=== PATIENT | female | born 1990 | race Caucasian/White ===

== ENCOUNTER 2021-01-18 04:18 | Emergency (ER) | payer OTHER, SELFPAY ==
--- NOTE | ~2021-01-18 | XR_ITS ---
EXAMINATION: XR chest 2V DATE: 01/18/2021 04:59 INDICATION: Left-sided chest pain TECHNIQUE: PA and lateral views of the chest are obtained. COMPARISON: None available FINDINGS: The lungs are free of acute opacities. There is no pleural effusion or pneumothorax. The ca rdiomediastinal silhouette is normal. The visualized bones and soft tissues are unremarkable. IMPRESSION: 1. No acute cardiopulmonary abnormality. Reviewed, dictated and finalized at location A. PASTE SUPERVISOR
[2021-01-18 04:22] VITALS: BP 123/77; PULSE 70; RESP 12; TEMP 36.7; O2SAT 99
--- NOTE | 2021-01-18 04:23 | ECG_ITS ---
Measurements Intervals [place] Rate: 61 P: 64 MI: 135 QRS: 60 QRSD: 104 T: 41 QT: 420 QTc: 424 Interpretive Statements SINUS RHYTHM POSSIBLE LEFT ATRIAL ENLARGEMENT INCOMPLETE RIGHT BUNDLE BRANCH BLOCK BASELINE ARTIFACT- II, III, AVR, AVF, V1, V3-V6 BORDERLINE ECG Electronically Signed On 01-18-2021 7:17:00 SENIOR DIRECTOR OF STRATEGY by Melquiades Berumen D.O.
[2021-01-18 04:27] VITALS: PULSE 60
[2021-01-18 04:48] LABS: Basophils Absolute Auto 0.1 K/mm3 (0.0-0.1); Basophils Percent Auto 0.9 % (0.2-1.2); Eosinophils Absolute Auto 0.2 K/mm3 (0-0.3); Eosinophils Percent Auto 1.8 % (0-4.4); Hematocrit 41.1 % (37.0-47.0); Hemoglobin 13.4 g/dL (12.0-15.0); Immature Granulocyte Absolute 0.04 K/mm3 (0.00-0.031); Immature Granulocyte Percent A 0.5 % (0-0.5); Lymphocytes Absolute Auto 2.89 K/mm3 (0.9-3.2); Lymphocytes Percent Auto 33.9 % (18.3-44.2); Mean Corpuscular HGB Conc 32.6 g/dl (32-36); Mean Corpuscular Hemoglobin 29.7 pg (26-34); Mean Corpuscular Volume 91.1 fl (80-100); Mean Platelet Volume 8.9 fl (7.4-10.4); Monocytes Absolute Auto 0.6 K/mm3 (0.1-0.6); Monocytes Percent Auto 7.2 % (2.6-8.5); Neutrophils Absolute Auto 4.8 K/mm3 (1.3-6.7); Neutrophils Percent Auto 55.7 % (45.5-73.1); Platelet Count Result 241 k/mm3 (150-375); Red Blood Count 4.51 M/mm3 (4.2-5.4); Red Cell Distribution Width 12.8 % (11.5-14.5); White Blood Count 8.5 K/mm3 (4.5-10.0)
--- NOTE | 2021-01-18 04:54 | ED.GENADULT ---
HPI - General Adult General Chief complaint: Chest Pain Stated complaint: chest pain x 1 hour Time Seen by Provider: 01/18/21 04:37 History of Present Illness HPI narrative: Patient 30-year-old female presents the emergency department with chief complaint of chest pain. Patient reports that this evening she started having some tightness in her chest that radiates to her left arm and into her neck patient states that she had no diaphoresis with this but felt a little short of breath with patient states that she is and delivered back in September the patient states also she is currently breast-feeding. Patient denies fever denies chills denies prior history of cardiac disease denies family history for cardiac disease at a young age. Patient denies any other medical conditions. Patient does report that she had gestational diabetes during her 2 previous pregnancies. Related Data Allergies Allergy/AdvReac Type Severity Reaction Status Date / Time No Known Allergies Allergy Verified 01/18/21 04:29 Review of Systems Review of Systems: A 10 system review of systems was completed on the patient and is negative except for what is stated in the HPI. Nursing and ancillary documentation was reviewed. Exam Narrative: GENERAL: Well-appearing, well-nourished, and in no acute distress. HEAD: Normocephalic, atraumatic. EYES: PERRLA and EOMI. ENT: Nares clear, no rhinorrhea or epistaxis. Mucous membranes moist. NECK: Supple. CHEST: Clear to auscultation. No respiratory distress. HEART: Regular rate and rhythm. No murmur heard. Normal peripheral pulses. ABDOMEN: Soft, nontender, nondistended, normal active bowel sounds. EXTREMITIES: Normal range of motion. No edema. SKIN: Warm, dry, no rash. NEURO: No focal deficits. Alert and oriented x3. PSYCH: Normal mood and affect. Course Course Emergency Course: EKG shows sinus rhythm at rate of [address] elevation or ST depression Vital Signs Vital signs: Vital Signs Temperature 36.7 C 01/18/21 04:22 Pulse Rate 70 01/18/21 04:22 Respiratory Rate 12 01/18/21 04:22 Blood Pressure 123/77 01/18/21 04:22 Pulse Oximetry 99 01/18/21 04:22 Temperature 36.7 C 01/18/21 04:22 Pulse Rate 62 01/18/21 05:32 Respiratory Rate 12 01/18/21 05:32 Blood Pressure 113/71 01/18/21 05:32 Pulse Oximetry 100 01/18/21 05:32 Medical Decision Making Vital Signs Vital Signs: Vital Signs Temperature 36.7 C 01/18/21 04:22 Pulse Rate 70 01/18/21 04:22 Respiratory Rate 12 01/18/21 04:22 Blood Pressure 123/77 01/18/21 04:22 Pulse Oximetry 99 01/18/21 04:22 Temperature 36.7 C 01/18/21 04:22 Pulse Rate 62 01/18/21 05:32 Respiratory Rate 12 01/18/21 05:32 Blood Pressure 113/71 01/18/21 05:32 Pulse Oximetry 100 01/18/21 05:32 Lab Data Result diagrams: 01/18/21 04:32 01/18/21 04:32 Labs: Lab Results 01/18/21 01/18/21 01/18/21 Range/Units 04:32 04:32 04:32 WBC 8.5 (4.5-10.0) K/mm3 RBC 4.51 (4.2-5.4) M/mm3 Hgb 13.4 (12.0-15.0) g/dL Hct 41.1 (37.0-47.0) % MCV 91.1 (80-100) fl MCH 29.7 (26-34) pg MCHC 32.6 (32-36) g/dl RDW 12.8 (11.5-14.5) % Plt Count 241 (150-375) k/mm3 MPV 8.9 (7.4-10.4) fl Immature Gran % (Auto) 0.5 (0-0.5) % Neut % (Auto) 55.7 (45.5-73.1) % Lymph % (Auto) 33.9 (18.3-44.2) % [place] % (Auto) 7.2 (2.6-8.5) % Eos % (Auto) 1.8 (0-4.4) % Baso % (Auto) 0.9 (0.2-1.2) % Lymph # (Auto) 2.89 (0.9-3.2) K/mm3 [place] # (Auto) 0.6 (0.1-0.6) K/mm3 Eos # (Auto) 0.2 (0-0.3) K/mm3 Baso # (Auto) 0.1 (0.0-0.1) K/mm3 Abs Immat Gran (auto) 0.04 H (0.00-0.031) K/mm3 Absolute Neuts (auto) 4.8 (1.3-6.7) K/mm3 Absolute Nucleated RBC 0.0 (0.0-0.012) K/mm3 Nucleated RBC % 0.0 (0.0-0.2) % PT 11.9 (11.1-14.7) Seconds INR 0.9 APTT 27.1 (22.3-36.8) SECONDS D-Dimer < 0.22 (<0.
--- NOTE | 2021-01-18 04:56 | PC.NURSE ---
pt to XRAY via w/c
--- NOTE | 2021-01-18 05:01 | PC.NURSE ---
Talked to Arlin/Haylie in lab at 0500 to add on D Dimer and Hepatic, Lip
[2021-01-18 05:02] LABS: Anion Gap 11 mmol/L (8-16); Blood Urea Nitrogen 21 mg/dL (7-17); Carbon Dioxide 24 mmol/L (22-30); Chloride 108 mmol/L (98-107); Estimated CRCL calculation 73 ml/min; Estimated Glomerular Filt Rate > 60; Glucose 109 mg/dL (65-110); Potassium 3.4 mmol/L (3.4-5.0); Sodium 143 mmol/L (137-145)
[2021-01-18 05:11] LABS: INR 0.9; Partial Thromboplastin Time 27.1 SECONDS (22.3-36.8); Prothrombin Time 11.9 Seconds (11.1-14.7)
[2021-01-18 05:14] LABS: Troponin I < 0.012 ng/mL (0.000-0.034)
[2021-01-18 05:24] LABS: D Dimer < 0.22 ug/mL (<0.48)
[2021-01-18 05:32] VITALS: BP 113/71; PULSE 62; RESP 12; O2SAT 100
[2021-01-18 06:02] LABS: Alanine Aminotransferase 13 U/L (4-35); Albumin Level 4.9 g/dL (3.5-5.1); Alkaline Phosphatase 53 U/L (38-126); Aspartate Amino Transferase 24 U/L (14-36); Bilirubin,Total 0.9 mg/dL (0.2-1.3); Lipase 309 U/L (23-300)
[2021-01-18 06:19] VITALS: BP 107/72; PULSE 60; RESP 15; O2SAT 100
== END 2021-01-18 06:21 | disposition home or self-care (01) ==
PROVIDERS: Emergency Provider Emergency Medicine; PCP Internal Medicine
DX: R07.89 Other chest pain (principal); Z86.32 Personal history of gestational diabetes
CPT/HCPCS: 36415; 71046; 80048; 80076; 83690; 84484; 85025; 85380; 85610; 85730; 93005; 99284

== ENCOUNTER 2021-08-08 13:54 | Emergency (ER) | payer OTHER, SELFPAY ==
[2021-08-08 14:05] VITALS: BP 117/80; PULSE 56; RESP 18; TEMP 36.8; O2SAT 99
--- NOTE | 2021-08-08 15:17 | ED.HEATRA ---
HPI - Head Injury General Chief complaint: Head Injury Stated complaint: struck head last pm, headahce Time Seen by Provider: 08/08/21 14:21 History of Present Illness HPI Narrative: Patient is a 31-year-old female who presents ER status post fall 1 day ago. Patient fell backwards and struck her head. No loss of consciousness. She did feel stunned initially. Today she has been feeling foggy and nauseous. Worse with activity or reading or watching TV. Has history of concussions in the past. She is not any blood thinners. Related Data Allergies Allergy/AdvReac Type Severity Reaction Status Date / Time No Known Allergies Allergy Verified 01/18/21 04:29 Review of Systems Review of Systems: All systems reviewed & are unremarkable except as noted in HPI and below Eyes: Eyes: Denies change in vision and Reports photophobia Gastrointestinal: Gastrointestinal: Reports nausea and Denies vomiting Neurologic: Denies syncope, Reports headache(s), Denies focal weakness and Denies numbness PMFSH Past Medical History Medical History (Updated 08/08/21 @ 21:30 by Deepak Flaherty MD) Concussion Surgical History Surgical History (Updated 08/08/21 @ 21:30 by Deepak Flaherty MD) History of hip surgery Social History Social History (Updated 08/08/21 @ 21:30 by Deepak Flaherty MD) Smoking status: Never smoker Exam Narrative: GENERAL: Well-appearing, well-nourished, and in no acute distress. HEAD: Normocephalic, atraumatic. EYES: PERRLA and EOMI. CHEST: Clear to auscultation. No respiratory distress. HEART: Regular rate and rhythm. Normal peripheral pulses. EXTREMITIES: Normal range of motion. No edema. NEURO: Alert and oriented x3. PSYCH: Normal mood and affect. Course Course Emergency Course: Discussed concussion symptoms and treatment. Patient verbalized understanding. No CT. Discharge home. Vital Signs Vital signs: Vital Signs Temperature 98.2 F 08/08/21 14:05 Pulse Rate 56 L 08/08/21 14:05 Respiratory Rate 18 08/08/21 14:05 Blood Pressure 117/80 08/08/21 14:05 Pulse Oximetry 99 08/08/21 14:05 Temperature 98.2 F 08/08/21 14:05 Pulse Rate 56 L 08/08/21 14:05 Respiratory Rate 18 08/08/21 14:05 Blood Pressure 117/80 08/08/21 14:05 Pulse Oximetry 99 08/08/21 14:05 Discharge Plan Discharge Clinical Impression: Concussion without loss of consciousness Patient Disposition: Home, Self-Care Condition: Stable Instructions: Concussion (ED) Additional Instructions: Return the ER if you suffer new injury, you cannot keep down food or water, you have a seizure, you have additional concerns. Prescriptions: New ondansetron 4 mg tablet,disintegrating 4 mg PO Q6H PRN (Reason: nausea and vomiting) Qty: 10 0RF Follow-up/Referrals: Tony,Johnathan Rangel MD [Primary Care Provider] - 1 Week
== END 2021-08-08 15:32 | disposition home or self-care (01) ==
PROVIDERS: Emergency Provider Emergency Medicine; PCP Internal Medicine
DX: S06.0X0A Concussion without loss of consciousness, initial encounter (principal); W10.9XXA Fall (on) (from) unspecified stairs and steps, initial encounter
CPT/HCPCS: 99283